=== PATIENT | male | born 1990 | race Caucasian/White ===

== ENCOUNTER 2023-09-20 07:44 | Emergency (ER) | payer MEDICAID ==
[~2023-09-20] VITALS: Ht 96.5 cm; Wt 123.0 kg
[2023-09-20 07:46] VITALS: O2SAT 98
[2023-09-20 08:53] LABS: BASOPHILS % 0.6 % (0.0-2.0); EOSINOPHILS % 1.2 % (0.0-5.0); HEMATOCRIT. 44.5 % (42.0-52.0); LYMPHOCYTES % 12.8 % (20.0-50.0); MEAN CORPUSCULAR HGB CONC 33.7 g/dL (31.0-37.0); MEAN CORPUSCULAR VOLUME 86.1 fL (80.0-94.0); MEAN PLATELET VOLUME 8.6 fl (7.4-10.4); NEUTROPHILS % 77.4 % (40.0-76.0); PLATELET 238 x1000/uL (130-400); RED BLOOD CELL COUNT 5.17 mill/uL (4.7-6.1); RED CELL DISTRIBUTION WIDTH 12.9 % (11.6-14.6); WHITE BLOOD COUNT 7.2 x1000/uL (4.5-11.0)
[2023-09-20 08:59] LABS: ALANINE AMINOTRANSFERASE 66 IU/L (10-49); ALBUMIN 4.8 g/dL (3.2-4.8); ASPARTATE AMINOTRANSFERASE 31 IU/L (<34); BILIRUBIN TOTAL 0.6 mg/dL (0.1-1.0); CALCIUM 9.1 mg/dL (8.7-10.4); CARBON DIOXIDE 23 mEq/L (21-32); CHLORIDE 105 mEq/L (98-107); CREATININE 0.8 mg/dL (0.6-1.3); GLUCOSE 111 mg/dL (70-105); POTASSIUM 3.9 mEq/L (3.5-5.1); PROTEIN TOTAL 7.9 g/dL (6.0-8.3); SODIUM 136 mEq/L (136-145); UREA NITROGEN BLOOD 11 mg/dL (9-23)
[2023-09-20 09:01] LABS: TROPONIN I HIGH SENSITIVITY < 4 ng/L (3.0-53)
[2023-09-20 10:33] VITALS: BP 168/73; PULSE 83; RESP 18; TEMP 98.2
[2023-09-21] MEDS ORDERED: AZIT500T8 MT (16:50)
[2023-09-21] MEDS ORDERED: TOPUD MT (16:50)
[2023-09-21] MEDS ORDERED: OFLO5DRO4 LEFT EAR (16:50)
== END 2023-09-20 10:34 | disposition home or self-care (01) ==
LOC: ER 07:44
DX: R07.9 Chest pain, unspecified (principal); Z88.0 Allergy status to penicillin
CPT/HCPCS: 36415; 71045; 80053; 83880; 84484; 85025; 93005; 99285

== ENCOUNTER 2023-09-21 08:53 | Emergency (ER) | payer MEDICAID ==
[~2023-09-21] VITALS: Ht 185.4 cm; Wt 123.0 kg
[2023-09-21 08:55] VITALS: O2SAT 98
[2023-09-21 09:34] LABS: BASOPHILS % 0.5 % (0.0-2.0); EOSINOPHILS % 1.9 % (0.0-5.0); HEMATOCRIT. 44.3 % (42.0-52.0); HEMOGLOBIN. 14.9 g/dL (14.0-18.0); MEAN CORPUSCULAR HEMOGLOBIN 29.1 pg (28.0-32.0); MEAN CORPUSCULAR HGB CONC 33.6 g/dL (31.0-37.0); MEAN CORPUSCULAR VOLUME 86.4 fL (80.0-94.0); MEAN PLATELET VOLUME 8.6 fl (7.4-10.4); MONOCYTES % 7.7 % (2.0-8.0); NEUTROPHILS % 75.9 % (40.0-76.0); PLATELET 239 x1000/uL (130-400); RED BLOOD CELL COUNT 5.13 mill/uL (4.7-6.1); WHITE BLOOD COUNT 6.8 x1000/uL (4.5-11.0)
[2023-09-21 09:49] LABS: ALANINE AMINOTRANSFERASE 67 IU/L (10-49); ALBUMIN 4.8 g/dL (3.2-4.8); ASPARTATE AMINOTRANSFERASE 34 IU/L (<34); BILIRUBIN TOTAL 0.6 mg/dL (0.1-1.0); CALCIUM 9.2 mg/dL (8.7-10.4); CARBON DIOXIDE 24 mEq/L (21-32); CHLORIDE 106 mEq/L (98-107); CREATININE 0.8 mg/dL (0.6-1.3); GLUCOSE 108 mg/dL (70-105); POTASSIUM 3.9 mEq/L (3.5-5.1); SODIUM 135 mEq/L (136-145); UREA NITROGEN BLOOD 9 mg/dL (9-23)
[2023-09-21 13:49] LABS: CLARITY URINE CLEAR (CLEAR); COLOR URINE YELLOW (YELLOW); GLUCOSE URINE NEGATIVE (NEGATIVE); KETONES URINE TRACE (NEGATIVE); LEUKOCYTE ESTERASE URINE NEGATIVE (NEGATIVE); NITRITE URINE NEGATIVE (NEGATIVE); OCCULT BLOOD URINE NEGATIVE (NEGATIVE); PH URINE 5.5 (4.5-8.0); PROTEIN URINE NEGATIVE (NEGATIVE); SPECIFIC GRAVITY URINE 1.013 (1.005-1.030); UROBILINOGEN URINE 0.2 E.U./dL (0.2-1.0)
[2023-09-21] MEDS ORDERED: OFLO5DRO4 LEFT EAR (16:50)
[2023-09-21] MEDS ORDERED: TOPUD MT (16:50)
[2023-09-21] MEDS ORDERED: AZIT500T8 MT (16:50)
[2023-09-21 17:14] VITALS: BP 154/106; PULSE 67; RESP 20; TEMP 98.2
== END 2023-09-21 17:16 | disposition home or self-care (01) ==
LOC: ER 08:53
DX: K62.5 Hemorrhage of anus and rectum (principal); I10 Essential (primary) hypertension; Z88.2 Allergy status to sulfonamides; Z88.0 Allergy status to penicillin
CPT/HCPCS: 36415; 80053; 81003; 82270; 85025; 86850; 86900; 99283

== ENCOUNTER 2023-09-22 13:15 | Emergency (ER) | payer MEDICAID ==
[~2023-09-22] VITALS: Ht 177.8 cm; Wt 110.0 kg
[~2023-09-22 13:15] MED LIST: AZIT500T8 MT; OFLO5DRO4 LEFT EAR; TOPUD MT
[2023-09-22 13:21] VITALS: BP 164/90; PULSE 88; RESP 16; TEMP 98.6; O2SAT 100
[2023-09-27] MEDS ORDERED: BUSP10TA4 MT (12:18)
== END 2023-09-22 16:35 | disposition left against medical advice (07) ==
LOC: ER 13:15
DX: R69 Illness, unspecified (principal); Z53.21 Procedure and treatment not carried out due to patient leaving prior to being seen by health care provider
CPT/HCPCS: 99281

== ENCOUNTER 2023-09-29 12:52 | Emergency (ER) | payer MEDICAID ==
[~2023-09-29] VITALS: Ht 182.9 cm; Wt 105.0 kg
[~2023-09-29 12:52] MED LIST changes: +BUSP10TA4 MT
[2023-09-29 12:59] VITALS: O2SAT 100
[2023-09-29 14:10] LABS: BASOPHILS % 0.6 % (0.0-2.0); EOSINOPHILS % 1.6 % (0.0-5.0); HEMATOCRIT. 44.8 % (42.0-52.0); HEMOGLOBIN. 15.7 g/dL (14.0-18.0); LYMPHOCYTES % 15.8 % (20.0-50.0); MEAN CORPUSCULAR HEMOGLOBIN 30.1 pg (28.0-32.0); MEAN CORPUSCULAR HGB CONC 34.9 g/dL (31.0-37.0); MEAN PLATELET VOLUME 8.6 fl (7.4-10.4); MONOCYTES % 9.4 % (2.0-8.0); NEUTROPHILS % 72.6 % (40.0-76.0); PLATELET 222 x1000/uL (130-400); RED BLOOD CELL COUNT 5.21 mill/uL (4.7-6.1); WHITE BLOOD COUNT 7.2 x1000/uL (4.5-11.0)
[2023-09-29 14:24] LABS: PARTIAL THROMBOPLASTIN TIME 27.1 sec (23.4-31.0); PROTHROMBIN TIME 10.7 sec (9.6-11.0)
[2023-09-29 14:28] LABS: ALANINE AMINOTRANSFERASE 95 IU/L (10-49); ALBUMIN 4.8 g/dL (3.2-4.8); ASPARTATE AMINOTRANSFERASE 40 IU/L (<34); BILIRUBIN TOTAL 0.6 mg/dL (0.1-1.0); CALCIUM 9.4 mg/dL (8.7-10.4); CARBON DIOXIDE 29 mEq/L (21-32); CHLORIDE 104 mEq/L (98-107); CREATININE 0.9 mg/dL (0.6-1.3); GLUCOSE 93 mg/dL (70-105); POTASSIUM 4.2 mEq/L (3.5-5.1); PROTEIN TOTAL 7.3 g/dL (6.0-8.3); SODIUM 137 mEq/L (136-145); UREA NITROGEN BLOOD 8 mg/dL (9-23)
[2023-09-29 14:31] LABS: TROPONIN I HIGH SENSITIVITY < 4 ng/L (3.0-53)
[2023-09-29] MEDS ORDERED: FAMO-135 MT (17:41)
[2023-09-29] MEDS: FAMOTIDINE 20MG TABLET PO ONE (18:11)
[2023-09-29 18:37] VITALS: BP 133/86; PULSE 61; RESP 18; TEMP 98.1
== END 2023-09-29 18:51 | disposition home or self-care (01) ==
LOC: ER 12:52
DX: R10.13 Epigastric pain (principal); F12.10 Cannabis abuse, uncomplicated; I10 Essential (primary) hypertension; Z88.0 Allergy status to penicillin; Z88.2 Allergy status to sulfonamides
CPT/HCPCS: 36415; 71045; 80053; 83880; 84484; 85025; 93005; 99285

== ENCOUNTER 2023-10-05 23:57 | Emergency (ER) | payer MEDICAID ==
[~2023-10-05] VITALS: Ht 185.4 cm; Wt 102.0 kg
[~2023-10-05 23:57] MED LIST changes: +FAMO-135 MT
[2023-10-05 23:59] VITALS: O2SAT 100
[2023-10-06] MEDS: KETOROLAC 30MG/ML VIAL IM ONE (00:41)
[2023-10-06] MEDS: FAMOTIDINE 20MG TABLET PO ONE (00:44)
[2023-10-06] MEDS: VISCOUS LIDOCAINE 2% 15 ML UDC PO NR (00:50)
[2023-10-06] MEDS: MAGNESIUM/ALUMINUM HYDROXIDE/SIMETHICONE 30ML UDC PO ONE (00:50)
[2023-10-06] MEDS ORDERED: FAMO-135 MT (00:57)
[2023-10-06 01:42] VITALS: BP 135/86; PULSE 67; RESP 14; TEMP 97.9
== END 2023-10-06 01:43 | disposition home or self-care (01) ==
LOC: ER 23:57
DX: K21.9 Gastro-esophageal reflux disease without esophagitis (principal); F41.9 Anxiety disorder, unspecified; I10 Essential (primary) hypertension; F12.90 Cannabis use, unspecified, uncomplicated; Z88.2 Allergy status to sulfonamides; Z88.0 Allergy status to penicillin
CPT/HCPCS: 99284; 71045; 96372; J1885; Z7610 ×2

== ENCOUNTER 2023-10-13 12:18 | Emergency (ER) | payer MEDICAID ==
[~2023-10-13] VITALS: Ht 188 cm; Wt 113.0 kg
[2023-10-13 12:23] VITALS: O2SAT 100
[2023-10-13] MEDS ORDERED: MAGNESIUM/ALUMINUM HYDROXIDE/SIMETHICONE 30ML UDC PO STA (12:30)
[2023-10-13 12:54] LABS: BASOPHILS % 0.6 % (0.0-2.0); EOSINOPHILS % 2.1 % (0.0-5.0); HEMATOCRIT. 44.7 % (42.0-52.0); HEMOGLOBIN. 15.3 g/dL (14.0-18.0); LYMPHOCYTES % 17.3 % (20.0-50.0); MEAN CORPUSCULAR HEMOGLOBIN 29.3 pg (28.0-32.0); MEAN CORPUSCULAR HGB CONC 34.3 g/dL (31.0-37.0); MEAN CORPUSCULAR VOLUME 85.3 fL (80.0-94.0); MEAN PLATELET VOLUME 8.7 fl (7.4-10.4); MONOCYTES % 8.5 % (2.0-8.0); NEUTROPHILS % 71.5 % (40.0-76.0); PLATELET 225 x1000/uL (130-400); RED BLOOD CELL COUNT 5.24 mill/uL (4.7-6.1); WHITE BLOOD COUNT 7.6 x1000/uL (4.5-11.0)
[2023-10-13 13:13] LABS: ALANINE AMINOTRANSFERASE 76 IU/L (10-49); ALBUMIN 4.7 g/dL (3.2-4.8); ASPARTATE AMINOTRANSFERASE 33 IU/L (<34); BILIRUBIN TOTAL 0.4 mg/dL (0.1-1.0); CARBON DIOXIDE 25 mEq/L (21-32); CHLORIDE 105 mEq/L (98-107); GLUCOSE 97 mg/dL (70-105); PROTEIN TOTAL 7.3 g/dL (6.0-8.3); SODIUM 137 mEq/L (136-145); UREA NITROGEN BLOOD 13 mg/dL (9-23)
[2023-10-13 13:14] LABS: TROPONIN I HIGH SENSITIVITY < 4 ng/L (3.0-53)
[2023-10-13] MEDS: MAGNESIUM/ALUMINUM HYDROXIDE/SIMETHICONE 30ML UDC PO NR (15:31)
[2023-10-13 18:11] VITALS: BP 135/93; PULSE 69; RESP 18; TEMP 98.2
== END 2023-10-13 18:15 | disposition home or self-care (01) ==
LOC: ER 12:18
DX: R07.89 Other chest pain (principal); F12.10 Cannabis abuse, uncomplicated; I10 Essential (primary) hypertension; Z88.0 Allergy status to penicillin; Z88.2 Allergy status to sulfonamides
CPT/HCPCS: 36415; 71045; 80053; 84484; 85025; 85379; 93005; 99285

== ENCOUNTER 2023-10-18 15:55 | Emergency (ER) | payer MEDICAID ==
[~2023-10-18] VITALS: Ht 182.9 cm; Wt 100.0 kg
[2023-10-18 15:56] VITALS: BP 143/88; PULSE 82; RESP 16; TEMP 98.6; O2SAT 100
[2023-10-18 18:34] LABS: BASOPHILS % 0.5 % (0.0-2.0); EOSINOPHILS % 0.9 % (0.0-5.0); HEMATOCRIT. 46.1 % (42.0-52.0); HEMOGLOBIN. 15.6 g/dL (14.0-18.0); LYMPHOCYTES % 13.9 % (20.0-50.0); MEAN CORPUSCULAR HEMOGLOBIN 28.7 pg (28.0-32.0); MEAN CORPUSCULAR HGB CONC 33.7 g/dL (31.0-37.0); MEAN CORPUSCULAR VOLUME 85.1 fL (80.0-94.0); MEAN PLATELET VOLUME 8.7 fl (7.4-10.4); MONOCYTES % 7.1 % (2.0-8.0); NEUTROPHILS % 77.6 % (40.0-76.0); PLATELET 222 x1000/uL (130-400); RED BLOOD CELL COUNT 5.42 mill/uL (4.7-6.1); RED CELL DISTRIBUTION WIDTH 13.1 % (11.6-14.6); WHITE BLOOD COUNT 9.1 x1000/uL (4.5-11.0)
[2023-10-18 18:41] LABS: INR 0.9; PARTIAL THROMBOPLASTIN TIME 27.1 sec (23.4-31.0); PROTHROMBIN TIME 10.6 sec (9.6-11.0)
[2023-10-18 18:45] LABS: ALANINE AMINOTRANSFERASE 59 IU/L (10-49); ALBUMIN 5.1 g/dL (3.2-4.8); ASPARTATE AMINOTRANSFERASE 28 IU/L (<34); BILIRUBIN TOTAL 0.6 mg/dL (0.1-1.0); CALCIUM 9.5 mg/dL (8.7-10.4); CARBON DIOXIDE 24 mEq/L (21-32); CHLORIDE 107 mEq/L (98-107); GLUCOSE 89 mg/dL (70-105); POTASSIUM 3.9 mEq/L (3.5-5.1); PROTEIN TOTAL 8.7 g/dL (6.0-8.3); SODIUM 138 mEq/L (136-145); UREA NITROGEN BLOOD 13 mg/dL (9-23)
[2023-10-18 18:51] LABS: ETHANOL BLOOD < 10 mg/dL (<10); TROPONIN I HIGH SENSITIVITY < 4 ng/L (3.0-53)
== END 2023-10-18 23:30 | disposition home or self-care (01) ==
LOC: ER 15:55
DX: R06.02 Shortness of breath (principal); F41.9 Anxiety disorder, unspecified; I10 Essential (primary) hypertension; F12.10 Cannabis abuse, uncomplicated; Z79.899 Other long term (current) drug therapy
CPT/HCPCS: 36415; 71045; 80053; 80320; 83880; 84484; 85025; 93005; 99285; G0480

== ENCOUNTER 2023-10-20 10:49 | Emergency (ER) | payer MEDICAID ==
[~2023-10-20] VITALS: Ht 182.9 cm; Wt 100.0 kg
[2023-10-20 10:51] VITALS: BP 132/82; O2SAT 99
[2023-10-20 11:17] LABS: BASOPHILS % 0.4 % (0.0-2.0); EOSINOPHILS % 1.6 % (0.0-5.0); HEMATOCRIT. 44.2 % (42.0-52.0); HEMOGLOBIN. 14.9 g/dL (14.0-18.0); LYMPHOCYTES % 20.8 % (20.0-50.0); MEAN CORPUSCULAR HEMOGLOBIN 28.7 pg (28.0-32.0); MEAN CORPUSCULAR HGB CONC 33.6 g/dL (31.0-37.0); MEAN CORPUSCULAR VOLUME 85.4 fL (80.0-94.0); MEAN PLATELET VOLUME 8.5 fl (7.4-10.4); NEUTROPHILS % 67.2 % (40.0-76.0); PLATELET 187 x1000/uL (130-400); RED BLOOD CELL COUNT 5.18 mill/uL (4.7-6.1); RED CELL DISTRIBUTION WIDTH 13.4 % (11.6-14.6)
[2023-10-20 11:49] LABS: ALANINE AMINOTRANSFERASE 50 IU/L (10-49); ALBUMIN 4.6 g/dL (3.2-4.8); ASPARTATE AMINOTRANSFERASE 26 IU/L (<34); BILIRUBIN TOTAL 0.6 mg/dL (0.1-1.0); CALCIUM 8.9 mg/dL (8.7-10.4); CARBON DIOXIDE 17 mEq/L (21-32); CHLORIDE 107 mEq/L (98-107); CREATININE 0.8 mg/dL (0.6-1.3); GLUCOSE 116 mg/dL (70-105); POTASSIUM 3.6 mEq/L (3.5-5.1); PROTEIN TOTAL 7.1 g/dL (6.0-8.3); SODIUM 137 mEq/L (136-145); UREA NITROGEN BLOOD 12 mg/dL (9-23)
[2023-10-20 11:50] LABS: *AMPHETAMINES SCREEN URINE NEGATIVE (NEGATIVE); *BARBITURATES SCREEN URINE NEGATIVE (NEGATIVE); *BENZODIAZEPINES SCREEN URINE NEGATIVE (NEGATIVE); *COCAINE SCREEN URINE NEGATIVE (NEGATIVE); CANNABINOID URINE SCREEN NEGATIVE (NEGATIVE); ECSTASY MDMA SCREEN URINE NEGATIVE (NEGATIVE); METHADONE URINE SCREEN Neg (NEGATIVE); OPIATES URINE SCREEN NEGATIVE (NEGATIVE); PHENCYCLIDINE URINE SCREEN NEGATIVE (NEGATIVE)
[2023-10-20 11:55] LABS: TROPONIN I HIGH SENSITIVITY < 4 ng/L (3.0-53)
[2023-10-20 12:40] VITALS: PULSE 81; RESP 16; TEMP 98.9
== END 2023-10-20 12:45 | disposition home or self-care (01) ==
LOC: ER 10:49
DX: R06.00 Dyspnea, unspecified (principal); F41.9 Anxiety disorder, unspecified; I10 Essential (primary) hypertension; F12.10 Cannabis abuse, uncomplicated; Z79.899 Other long term (current) drug therapy
CPT/HCPCS: 36415; 71045; 80053; 80305; 83880; 84484; 85025; 85379; 93005; 99285

== ENCOUNTER 2023-10-21 12:45 | Emergency (ER) | payer MEDICAID ==
[~2023-10-21] VITALS: Ht 172.7 cm; Wt 109.0 kg
[2023-10-21 12:47] VITALS: O2SAT 99
[2023-10-21 15:40] LABS: BASOPHILS % 0.8 % (0.0-2.0); EOSINOPHILS % 1.9 % (0.0-5.0); HEMATOCRIT. 45.1 % (42.0-52.0); HEMOGLOBIN. 15.2 g/dL (14.0-18.0); LYMPHOCYTES % 16.1 % (20.0-50.0); MEAN CORPUSCULAR HEMOGLOBIN 28.9 pg (28.0-32.0); MEAN CORPUSCULAR HGB CONC 33.6 g/dL (31.0-37.0); MEAN CORPUSCULAR VOLUME 85.9 fL (80.0-94.0); NEUTROPHILS % 75.2 % (40.0-76.0); PLATELET 219 x1000/uL (130-400); RED BLOOD CELL COUNT 5.25 mill/uL (4.7-6.1); RED CELL DISTRIBUTION WIDTH 13.1 % (11.6-14.6); WHITE BLOOD COUNT 7.8 x1000/uL (4.5-11.0)
[2023-10-21 15:56] LABS: ALANINE AMINOTRANSFERASE 51 IU/L (10-49); ALBUMIN 4.8 g/dL (3.2-4.8); ASPARTATE AMINOTRANSFERASE 26 IU/L (<34); BILIRUBIN TOTAL 0.6 mg/dL (0.1-1.0); CALCIUM 9.1 mg/dL (8.7-10.4); CARBON DIOXIDE 23 mEq/L (21-32); CHLORIDE 105 mEq/L (98-107); CREATININE 0.9 mg/dL (0.6-1.3); GLUCOSE 141 mg/dL (70-105); PROTEIN TOTAL 7.4 g/dL (6.0-8.3); SODIUM 138 mEq/L (136-145); UREA NITROGEN BLOOD 12 mg/dL (9-23)
[2023-10-21 18:19] LABS: TROPONIN I HIGH SENSITIVITY < 4 ng/L (3.0-53)
[2023-10-21 21:53] LABS: D-DIMER < 0.19 mg/L FEU (<0.50); PARTIAL THROMBOPLASTIN TIME 27.3 sec (23.4-31.0); PROTHROMBIN TIME 10.8 sec (9.6-11.0)
[2023-10-21 22:05] VITALS: BP 134/93; PULSE 69; RESP 18; TEMP 98.2
[2023-10-21] MEDS ORDERED: IOHEXOL-300 100 ML BOTTLE ONE (22:43)
[2023-10-24] MEDS ORDERED: LORA-249 PO (11:55)
[2023-10-24] MEDS ORDERED: AZIT500T MT (11:55)
== END 2023-10-21 22:05 | disposition home or self-care (01) ==
LOC: ER 12:45
DX: R06.00 Dyspnea, unspecified (principal); F41.9 Anxiety disorder, unspecified; I10 Essential (primary) hypertension; F12.90 Cannabis use, unspecified, uncomplicated; Z88.0 Allergy status to penicillin; Z88.2 Allergy status to sulfonamides
CPT/HCPCS: 99285; 71260; 80053; 83880; 85025; 85379; 85610; 85730; 84484; 93005; 36415; Q9967

== ENCOUNTER 2023-10-26 00:32 | Emergency (ER) | payer MEDICAID ==
[~2023-10-26] VITALS: Ht 170.2 cm; Wt 100.0 kg
[~2023-10-26 00:32] MED LIST changes: +AZIT500T MT; -AZIT500T8 MT; +LORA-249 PO; -OFLO5DRO4 LEFT EAR
[2023-10-26 00:39] VITALS: BP 150/100; PULSE 71; RESP 20; TEMP 98.5; O2SAT 100
== END 2023-10-26 01:00 | disposition left against medical advice (07) ==
LOC: ER 00:44
DX: R04.0 Epistaxis (principal); Z53.21 Procedure and treatment not carried out due to patient leaving prior to being seen by health care provider
CPT/HCPCS: 99281

== ENCOUNTER 2023-11-01 11:56 | Emergency (ER) | payer MEDICAID ==
[~2023-11-01] VITALS: Ht 185.4 cm; Wt 125.0 kg
[2023-11-01 12:00] VITALS: BP 132/86; PULSE 74; RESP 16; TEMP 98.8; O2SAT 98
[2023-11-01 12:40] LABS: BASOPHILS % 0.7 % (0.0-2.0); EOSINOPHILS % 1.7 % (0.0-5.0); HEMATOCRIT. 43.8 % (42.0-52.0); HEMOGLOBIN. 15.2 g/dL (14.0-18.0); LYMPHOCYTES % 15.9 % (20.0-50.0); MEAN CORPUSCULAR HEMOGLOBIN 29.2 pg (28.0-32.0); MEAN CORPUSCULAR HGB CONC 34.6 g/dL (31.0-37.0); MEAN CORPUSCULAR VOLUME 84.2 fL (80.0-94.0); MEAN PLATELET VOLUME 9.1 fl (7.4-10.4); MONOCYTES % 10.6 % (2.0-8.0); NEUTROPHILS % 71.1 % (40.0-76.0); PLATELET 222 x1000/uL (130-400); RED CELL DISTRIBUTION WIDTH 13.1 % (11.6-14.6)
[2023-11-01 13:14] LABS: ALANINE AMINOTRANSFERASE 50 IU/L (10-49); ASPARTATE AMINOTRANSFERASE 27 IU/L (<34); BILIRUBIN TOTAL 0.5 mg/dL (0.1-1.0); CALCIUM 9.4 mg/dL (8.7-10.4); CARBON DIOXIDE 23 mEq/L (21-32); CHLORIDE 106 mEq/L (98-107); CREATININE 0.9 mg/dL (0.6-1.3); GLUCOSE 89 mg/dL (70-105); POTASSIUM 3.9 mEq/L (3.5-5.1); PROTEIN TOTAL 8.2 g/dL (6.0-8.3); SODIUM 139 mEq/L (136-145); UREA NITROGEN BLOOD 11 mg/dL (9-23)
[2023-11-01 13:15] LABS: TROPONIN I HIGH SENSITIVITY < 4 ng/L (3.0-53)
== END 2023-11-01 14:00 | disposition home or self-care (01) ==
LOC: ER 11:56
DX: R06.02 Shortness of breath (principal); F12.90 Cannabis use, unspecified, uncomplicated; F41.9 Anxiety disorder, unspecified
CPT/HCPCS: 36415; 71045; 80053; 84484; 85025; 93005; 99285

== ENCOUNTER 2024-03-14 12:29 | Emergency (ER) | payer MEDICAID ==
[~2024-03-14] VITALS: Ht 177.8 cm; Wt 110.0 kg
[2024-03-14 12:32] VITALS: O2SAT 98
[2024-03-14 14:51] VITALS: BP 136/89; PULSE 66; RESP 18; TEMP 37.05852; O2SAT 100
== END 2024-03-14 14:53 | disposition home or self-care (01) ==
LOC: ER 12:29
DX: R06.02 Shortness of breath (principal); F41.9 Anxiety disorder, unspecified; Z88.0 Allergy status to penicillin; Z88.2 Allergy status to sulfonamides
CPT/HCPCS: 71045; 93005; 99283

== ENCOUNTER 2024-08-17 13:01 | Inpatient (IN) | payer MEDICAID ==
[~2024-08-17] VITALS: Ht 185.4 cm; Wt 113.4 kg
[2024-08-17 14:56] LABS: BASOPHILS % 0.5 % (0.0-2.0); EOSINOPHILS % 1.8 % (0.0-5.0); HEMATOCRIT. 47.3 % (42.0-52.0); HEMOGLOBIN. 15.9 g/dL (14.0-18.0); LYMPHOCYTES % 12.4 % (20.0-50.0); MEAN CORPUSCULAR HEMOGLOBIN 29.4 pg (28.0-32.0); MEAN CORPUSCULAR HGB CONC 33.5 g/dL (31.0-37.0); MEAN CORPUSCULAR VOLUME 87.6 fL (80.0-94.0); MEAN PLATELET VOLUME 9.1 fl (7.4-10.4); MONOCYTES % 7.2 % (2.0-8.0); NEUTROPHILS % 78.1 % (40.0-76.0); PLATELET 226 x1000/uL (130-400); RED CELL DISTRIBUTION WIDTH 12.9 % (11.6-14.6); WHITE BLOOD COUNT 7.4 x1000/uL (4.5-11.0)
[2024-08-17 15:18] LABS: CARBON DIOXIDE 24 mEq/L (21-32); CHLORIDE 106 mEq/L (98-107); POTASSIUM 3.7 mEq/L (3.5-5.1); SODIUM 139 mEq/L (136-145)
[2024-08-17 15:19] LABS: CALCIUM 9.6 mg/dL (8.7-10.4)
[2024-08-17 15:23] LABS: CREATININE 0.8 mg/dL (0.6-1.3)
[2024-08-17 15:24] LABS: GLUCOSE 114 mg/dL (70-105); UREA NITROGEN BLOOD 11 mg/dL (9-23)
[2024-08-17 15:25] LABS: ALANINE AMINOTRANSFERASE 38 IU/L (10-49); ALBUMIN 4.8 g/dL (3.2-4.8); ASPARTATE AMINOTRANSFERASE 25 IU/L (<34)
[2024-08-17 15:26] LABS: BILIRUBIN DIRECT 0.2 mg/dL (<=3.0); BILIRUBIN TOTAL 0.5 mg/dL (0.1-1.0); PROTEIN TOTAL 7.6 g/dL (6.0-8.3)
[2024-08-17] MEDS ORDERED: ACETAMINOPHEN 325MG TABLET PO ONE (16:30)
[2024-08-17] MEDS ORDERED: MORPHINE SULFATE 4 MG/ML INJ (FOR IV/IM USE) IV STA (17:42)
[2024-08-17] MEDS: MORPHINE SULFATE 4 MG/ML INJ (FOR IV/IM USE) IV NR (20:23)
[2024-08-17] MEDS: ACETAMINOPHEN 325MG TABLET PO NR (20:23)
[2024-08-17] MEDS: SODIUM CHLORIDE 0.9% 1,000 ML IV ONE (20:23)
[2024-08-18] MEDS ORDERED: MOM MT (00:39)
[2024-08-18] MEDS ORDERED: CALC500T6 MT (00:39)
[2024-08-18 00:48] VITALS: BP 143/83; PULSE 67; RESP 19; TEMP 36.696
[2024-08-18] MEDS ORDERED: HYDROCODONE/ACETAMINOPHEN 5/325MG TABLET PO PRN (02:00)
[2024-08-18] MEDS ORDERED: ONDANSETRON HCL 4MG/2ML INJ IV PRN (02:00)
[2024-08-18] MEDS ORDERED: MORPHINE SULFATE 2 MG/ML INJ (NOT FOR IM USE) IV PRN (02:00)
[2024-08-18] MEDS ORDERED: CLONIDINE 0.1MG TABLET PO PRN (02:00)
[2024-08-18] MEDS ORDERED: MAGNESIUM HYDROXIDE 400MG/5ML 30ML UDC PO PRN (02:15)
[2024-08-18 04:00] VITALS: BP 130/74; PULSE 59; RESP 19; TEMP 36.33624; O2SAT 97
[2024-08-18 07:50] LABS: CALCIUM 9.1 mg/dL (8.7-10.4); CARBON DIOXIDE 27 mEq/L (21-32); CHLORIDE 104 mEq/L (98-107); POTASSIUM 3.7 mEq/L (3.5-5.1); SODIUM 140 mEq/L (136-145)
[2024-08-18 07:56] LABS: CREATININE 0.9 mg/dL (0.6-1.3); GLUCOSE 86 mg/dL (70-105); UREA NITROGEN BLOOD 11 mg/dL (9-23)
[2024-08-18 08:00] VITALS: BP 134/75; PULSE 62; RESP 18; TEMP 36.44736; O2SAT 98
[2024-08-18] MEDS: PANTOPRAZOLE SODIUM 40 MG/VIAL IV SCH (08:27)
[2024-08-18 08:41] LABS: HEMATOCRIT 44.8 % (42.0-52.0); HEMOGLOBIN 15.3 g/dL (14.0-18.0); MEAN CORPUSCULAR HEMOGLOBIN 30.1 pg (28.0-32.0); MEAN CORPUSCULAR HGB CONC 34.1 g/dL (31.0-37.0); MEAN CORPUSCULAR VOLUME 88.1 fL (80.0-94.0); PLATELET 195 x1000/uL (130-400); RED BLOOD CELL COUNT 5.08 mill/uL (4.7-6.1); RED CELL DISTRIBUTION WIDTH 12.9 % (11.6-14.6); WHITE BLOOD COUNT 7.2 x1000/uL (4.5-11.0)
[2024-08-18] MEDS: CARBAMIDE PEROXIDE 6.5% OTIC SOLN 15ML LEFT EAR SCH (11:31)
[2024-08-18 12:00] VITALS: BP 128/72; PULSE 60; RESP 18; TEMP 36.3918; O2SAT 98
[2024-08-18 16:00] VITALS: BP 124/71; PULSE 63; RESP 20; TEMP 36.44736; O2SAT 97
[2024-08-18 20:00] VITALS: BP 127/68; PULSE 69; RESP 20; TEMP 36.3918; O2SAT 98
[2024-08-19 08:00] VITALS: BP 105/63; PULSE 64; RESP 18; TEMP 36.50292; O2SAT 99
[2024-08-19 12:00] VITALS: BP 112/71; PULSE 67; RESP 18; TEMP 36.61404; O2SAT 99
[2024-08-19 16:00] VITALS: BP 117/75; PULSE 68; RESP 17; TEMP 36.61404; O2SAT 96
[2024-08-19 17:12] VITALS: BP 117/75; PULSE 68; TEMP 97.9; O2SAT 95
[2024-08-20] MEDS ORDERED: FAMOTIDINE 20MG/2ML VIAL IV SCH (09:00)
== END 2024-08-19 18:15 | disposition home or self-care (01) | DRG 254 ==
LOC: ER 13:01 → 6EST 22:27 → EDBEDREQ 23:03 → EDBEDREQTM 23:03
PROVIDERS: ADMIT Internal Medicine; ATTEND Internal Medicine
DX: K43.9 Ventral hernia without obstruction or gangrene (principal); F41.9 Anxiety disorder, unspecified; K21.9 Gastro-esophageal reflux disease without esophagitis; R59.0 Localized enlarged lymph nodes; K76.9 Liver disease, unspecified; Z88.2 Allergy status to sulfonamides; Z88.0 Allergy status to penicillin
CPT/HCPCS: 36415; 74176; 80048; 80076; 85025; 85027; 99285; J2270; J2470; J7030

== ENCOUNTER 2024-10-11 18:12 | Emergency (ER) | payer MEDICAID ==
[~2024-10-11] VITALS: Ht 185.4 cm; Wt 127.0 kg
[~2024-10-11 18:12] MED LIST changes: -AZIT500T MT; +CALC500T6 MT; +MOM MT
[2024-10-11 18:20] VITALS: BP 166/97; PULSE 87; RESP 16; TEMP 36.9; O2SAT 97
== END 2024-10-11 20:13 | disposition home or self-care (01) ==
LOC: ER 18:12
DX: R07.89 Other chest pain (principal); Z79.899 Other long term (current) drug therapy; F12.90 Cannabis use, unspecified, uncomplicated; J45.909 Unspecified asthma, uncomplicated; F41.9 Anxiety disorder, unspecified; K21.9 Gastro-esophageal reflux disease without esophagitis; Z88.0 Allergy status to penicillin; Z88.2 Allergy status to sulfonamides
CPT/HCPCS: 71045; 99283

== ENCOUNTER 2024-11-21 13:56 | Emergency (ER) | payer MEDICAID ==
[~2024-11-21] VITALS: Ht 177.8 cm; Wt 100.0 kg
[2024-11-21 13:58] VITALS: PULSE 85; RESP 16; O2SAT 98
[2024-11-21 14:03] VITALS: BP 146/94; TEMP 37.2; O2SAT 100
[2024-11-21] MEDS: LIDOCAINE HCL 1% 20ML VIAL INFIL ONE (16:04)
[2024-11-21] MEDS ORDERED: IBUP-2028 MT (16:26)
== END 2024-11-21 16:31 | disposition home or self-care (01) ==
LOC: ER 13:56
DX: S52.691A Other fracture of lower end of right ulna, initial encounter for closed fracture (principal); K21.9 Gastro-esophageal reflux disease without esophagitis; F12.90 Cannabis use, unspecified, uncomplicated; F41.9 Anxiety disorder, unspecified; Z88.0 Allergy status to penicillin; Z88.2 Allergy status to sulfonamides; X58.XXXA Exposure to other specified factors, initial encounter; Y93.89 Activity, other specified; Y92.89 Other specified places as the place of occurrence of the external cause; Y99.8 Other external cause status
CPT/HCPCS: 99285; 26605; 73130; 99152; J3490; A6449; 73120

== ENCOUNTER 2025-03-24 14:01 | Emergency (ER) | payer MEDICAID ==
[~2025-03-24] VITALS: Ht 177.8 cm; Wt 110.0 kg
[~2025-03-24 14:01] MED LIST changes: +IBUP-2028 MT
[2025-03-24 14:13] VITALS: O2SAT 100
[2025-03-24 16:26] LABS: BASOPHILS % 0.2 % (0.0-2.0); EOSINOPHILS % 1.5 % (0.0-5.0); HEMATOCRIT. 46.3 % (42.0-52.0); HEMOGLOBIN. 15.8 g/dL (14.0-18.0); LYMPHOCYTES % 11.0 % (20.0-50.0); MEAN PLATELET VOLUME 8.8 fl (7.4-10.4); MONOCYTES % 7.2 % (2.0-8.0); NEUTROPHILS % 80.1 % (40.0-76.0); PLATELET 195 x1000/uL (130-400); RED BLOOD CELL COUNT 5.33 mill/uL (4.7-6.1); RED CELL DISTRIBUTION WIDTH 13.3 % (11.6-14.6)
[2025-03-24 16:42] LABS: CREATININE 1.0 mg/dL (0.6-1.3); UREA NITROGEN BLOOD 9 mg/dL (9-23)
[2025-03-24 16:44] LABS: ASPARTATE AMINOTRANSFERASE 26 IU/L (<34); BILIRUBIN DIRECT 0.2 mg/dL (<=3.0)
[2025-03-24 16:45] LABS: BILIRUBIN TOTAL 0.6 mg/dL (0.1-1.0); PROTEIN TOTAL 8.0 g/dL (6.0-8.3)
[2025-03-24] MEDS ORDERED: NIRM1TAB12 MT (17:07)
[2025-03-24] MEDS ORDERED: IBUP-2028 MT (17:07)
[2025-03-24 18:38] VITALS: BP 160/100; PULSE 75; RESP 18; TEMP 36.9; O2SAT 100
[2025-03-24] MEDS: CEFTRIAXONE SODIUM 500MG VIAL IM ONE (18:38)
== END 2025-03-24 18:41 | disposition home or self-care (01) ==
LOC: ER 14:01
DX: U07.1 COVID-19 (principal); F41.9 Anxiety disorder, unspecified; F12.90 Cannabis use, unspecified, uncomplicated; Z98.890 Other specified postprocedural states; Z88.2 Allergy status to sulfonamides; Z88.0 Allergy status to penicillin; Z20.2 Contact with and (suspected) exposure to infections with a predominantly sexual mode of transmission
CPT/HCPCS: 99284; 71046; 87426; 86592; 80076; 80048; 87430; 83690; 83735; 85025; 87070; 36415; 96372; J0696